=== PATIENT | male | born 1940 | race Hispanic/Latino ===

== ENCOUNTER 2017-05-05 05:45 | Day surgery (SDC) | payer OTHER ==
[2017-05-03 11:53] VITALS: BP 139/67
[2017-05-03 12:12] LABS: BASOPHILS % (AUTO) 1.4 % (0.0-5.0); EOSINOPHILS % (AUTO) 5.4 % (0.0-8.0); HEMATOCRIT 41.7 % (42-54); LYMPHOCYTES % (AUTO) 22.9 % (21.0-51.0); MEAN CORPUSCULAR HGB CONC 34.9 g/dL (32.0-36.0); MONOCYTES % (AUTO) 11.6 % (3.0-13.0); NEUTROPHILS % (AUTO) 58.7 % (40.0-77.0); NUCLEATED RED BLOOD CELLS 0.1 % (0.0-0.19); PLATELET COUNT (AUTO) 158 K/uL (130-400); RED BLOOD CELL COUNT(AUTO) 4.69 MIL/uL (4.50-6.20); RED CELL DISTRIBUTION WIDTH 13.5 % (11.0-15.5); WHITE BLOOD COUNT (AUTO) 5.9 K/uL (4.8-10.8)
[2017-05-03 12:18] LABS: CREATININE 1.1 mg/dL (0.5-1.5)
[2017-05-03 12:28] LABS: INR 1.02 (0.85-1.15); PROTHROMBIN TIME 10.7 SEC (9.6-11.6)
[2017-05-05] VITALS (11 sets, daily range): BP systolic 120–165; BP diastolic 64–80
[~2017-05-05] VITALS: Ht 167.6 cm; Wt 88.5 kg
[~2017-05-05 05:45] MED LIST: AMLO10TA2 PO; APIX5TAB PO; ASPI-1181 PO; HYDR25TA PO; METF500T6 PO; METO50TA18 PO; PANT40TA25 PO; PRAV40TA3 PO; TERA5CAP4 PO; VALS320T15 PO
[2017-05-05] MEDS ORDERED: SODIUM CHLORIDE 0.9% 1000ML 1,000 ML IV ONE (06:25)
[2017-05-05] MEDS ORDERED: HEPARIN SODIUM 1000UNIT/ML 10ML VIAL ONE (07:15)
[2017-05-05] MEDS ORDERED: LIDOCAINE HCL 2% 20ML ONE (07:15)
[2017-05-05] MEDS ORDERED: MEPERIDINE-PF 50 MG/ML SYG ONE (07:49)
[2017-05-05] MEDS ORDERED: MIDAZOLAM HCL 1 MG/ML 2ML VIAL ONE ×2 (07:49→07:50)
[2017-05-05] MEDS ORDERED: SODIUM CHLORIDE 0.9% 500ML 500 ML IV ONE (08:00)
[2017-05-05] MEDS ORDERED: DEXTROSE 50%-WATER 50 ML DISP.SYRIN IV PRN (09:45)
[2017-05-05] MEDS ORDERED: GLUCAGON 1MG KIT 1 MG ML IM PRN (09:45)
[2017-05-05] MEDS ORDERED: INSULIN HUMULIN R 100 UNIT/ML 3ML SQ SCH (11:30)
== END 2017-05-05 13:00 | disposition home or self-care (01) ==
LOC: DAH 05:45
PROVIDERS: ATTEND Internal Medicine Cardiovascular Disease
DX: I48.3 Typical atrial flutter (principal); I25.2 Old myocardial infarction; E78.5 Hyperlipidemia, unspecified; I48.91 Unspecified atrial fibrillation; I25.10 Atherosclerotic heart disease of native coronary artery without angina pectoris; I10 Essential (primary) hypertension; Z95.5 Presence of coronary angioplasty implant and graft; Z79.82 Long term (current) use of aspirin; Z79.01 Long term (current) use of anticoagulants
CPT/HCPCS: 36415; 80048; 82948 ×3; 85025; 85610; 85730; 93005; 93613; 93621; 93653; 99156; 99157; A4649; C1730; C1732; C1894 ×2; J1644; J1815; J2175; J2250; J3490; J7030; 99152; 99153

== ENCOUNTER → 2020-08-13 | Outpatient (CLI) | payer OTHER ==
[~2020-08-13] MED LIST changes: +AMLO-258 PO; -AMLO10TA2 PO; -ASPI-1181 PO; +ASPI-1443 PO; +METF-444 PO; -METF500T6 PO; -PANT40TA25 PO; +PANT40TA54 PO; -VALS320T15 PO; +VALS320T16 PO
== END | disposition home or self-care (01) ==
LOC: RAH 08:51
PROVIDERS: ATTEND Internal Medicine Cardiovascular Disease
DX: J90 Pleural effusion, not elsewhere classified (principal); R18.8 Other ascites; R16.1 Splenomegaly, not elsewhere classified
CPT/HCPCS: 76700

== ENCOUNTER → 2020-09-18 | Outpatient (CLI) | payer OTHER | END | disposition home or self-care (01) | LOC: SHCH 13:14 | PROVIDERS: ATTEND Internal Medicine Cardiovascular Disease | DX: I11.0 Hypertensive heart disease with heart failure (principal); I50.22 Chronic systolic (congestive) heart failure; I08.3 Combined rheumatic disorders of mitral, aortic and tricuspid valves; E78.5 Hyperlipidemia, unspecified; E11.9 Type 2 diabetes mellitus without complications | CPT/HCPCS: 93306; 93356 ==

== ENCOUNTER → 2020-10-30 | Outpatient (CLI) | payer OTHER | END | disposition home or self-care (01) | LOC: RAH 08:28 | PROVIDERS: ATTEND Internal Medicine Gastroenterology | DX: N28.1 Cyst of kidney, acquired (principal); K74.60 Unspecified cirrhosis of liver; J90 Pleural effusion, not elsewhere classified; Z90.49 Acquired absence of other specified parts of digestive tract | CPT/HCPCS: 76700; 93975 ==

== ENCOUNTER 2020-11-18 06:22 | Day surgery (SDC) | payer OTHER ==
[2020-11-18] VITALS (11 sets, daily range): BP systolic 101–130; BP diastolic 62–79
[~2020-11-18] VITALS: Ht 172.7 cm; Wt 74.4 kg
[~2020-11-18 06:22] MED LIST changes: +ACET-2743 PO; -ASPI-1443 PO; +CARV6.25 PO; +CYAN250T3 PO; +FURO40TA5 PO; +LEVO50CA4 PO; +LORA10TA7 PO; +MULT-1259 PO; +SACU1TAB PO; +SODIUM CHLORIDE 0.9% 1000ML 1,000 ML IV ONE
[2020-11-18] MEDS ORDERED: PROPOFOL 10 MG/ML 20ML VIAL IV ONE (07:44)
[2020-11-18] MEDS ORDERED: IPRATROPIUM/ALBUTEROL SULFATE 3 ML SOLUTION IH SCH (08:45)
[2020-11-18] MEDS ORDERED: IPRATROPIUM/ALBUTEROL SULFATE 3 ML SOLUTION IH ONE (08:45)
== END 2020-11-18 09:20 | disposition home or self-care (01) ==
LOC: ENDO 06:22 → DAH 06:22 → ENDO 09:20
PROVIDERS: ATTEND Internal Medicine Gastroenterology
DX: K74.60 Unspecified cirrhosis of liver (principal); R13.10 Dysphagia, unspecified; R12 Heartburn; K31.89 Other diseases of stomach and duodenum; I11.0 Hypertensive heart disease with heart failure; I50.20 Unspecified systolic (congestive) heart failure; E11.9 Type 2 diabetes mellitus without complications; I48.91 Unspecified atrial fibrillation; E78.5 Hyperlipidemia, unspecified; Z79.84 Long term (current) use of oral hypoglycemic drugs; Z79.01 Long term (current) use of anticoagulants; Z79.899 Other long term (current) drug therapy
CPT/HCPCS: 43239; 71045; 82948 ×2; 87635; 93005; 94640; A4215 ×2; A4221; A4222; A4223; A4606; A4620; A4657; A4663; C9803; J2704; J7030

== ENCOUNTER 2021-02-12 21:00 | Inpatient (IN) | payer OTHER ==
[~2021-02-12] VITALS: Ht 172.7 cm; Wt 65.9 kg
[~2021-02-12 21:00] MED LIST changes: -AMLO-258 PO; -HYDR25TA PO; -METO50TA18 PO; -PRAV40TA3 PO; -SODIUM CHLORIDE 0.9% 1000ML 1,000 ML IV ONE; -VALS320T16 PO
[2021-02-12 21:03] VITALS: BP 110/64
[2021-02-12 21:30] VITALS: BP 111/86
[2021-02-12 21:47] LABS: BASOPHILS % (AUTO) 0.2 % (0.0-5.0); EOSINOPHILS % (AUTO) 0.1 % (0.0-8.0); HEMATOCRIT 35.4 % (42-54); LYMPHOCYTES % (AUTO) 5.7 % (21.0-51.0); MEAN CORPUSCULAR HEMOGLOBIN 28.6 pg (27.0-33.0); MEAN CORPUSCULAR HGB CONC 33.9 g/dL (32.0-36.0); MEAN CORPUSCULAR VOLUME 84.5 fL (79-99); MONOCYTES % (AUTO) 5.8 % (3.0-13.0); NEUTROPHILS % (AUTO) 87.6 % (40.0-77.0); PLATELET COUNT (AUTO) 224 K/uL (130-400); RED BLOOD CELL COUNT(AUTO) 4.19 MIL/uL (4.50-6.20); RED CELL DISTRIBUTION WIDTH 16.8 % (11.0-15.5); WHITE BLOOD COUNT (AUTO) 10.5 K/uL (4.8-10.8)
[2021-02-12 22:03] LABS: CREATININE 1.2 mg/dL (0.5-1.5); POTASSIUM 3.3 mmol/L (3.5-5.1)
[2021-02-12 22:05] LABS: INR 1.23 (0.85-1.15); PROTHROMBIN TIME 13.2 SEC (9.6-11.6)
[2021-02-12 22:07] LABS: ALBUMIN 2.8 g/dL (3.5-5.0); B-TYPE NATRIURETIC PEPTIDE 1760 pg/mL (0-100); BILIRUBIN,TOTAL 0.6 mg/dL (0.2-1.0); TOTAL PROTEIN, SERUM 6.6 g/dL (6.0-8.3)
[2021-02-12 22:44] VITALS: BP 112/72
[2021-02-12] MEDS ORDERED: FUROSEMIDE 40MG VIAL IV ONE (23:00)
[2021-02-13] VITALS (11 sets, daily range): BP systolic 93–125; BP diastolic 53–81
[2021-02-13] MEDS ORDERED: CEFTRIAXONE 1G VIAL IV SCH
[2021-02-13] MEDS ORDERED: LACTULOSE 20 GM/30 ML UDCUP PO PRN
[2021-02-13] MEDS ORDERED: KCL 20 MEQ ERTAB PO PRN
[2021-02-13] MEDS ORDERED: LIDOCAINE HCL-MPF 1% 2ML VIAL IV PRN
[2021-02-13] MEDS ORDERED: POTASSIUM CHLORIDE 10% ELIXIR 20 MEQ/15 ML UDCUP PO PRN
[2021-02-13] MEDS ORDERED: ACETAMINOPHEN 325 MG TAB PO PRN
[2021-02-13] MEDS ORDERED: POTASSIUM CHLORIDE 10MEQ/100ML 100 ML IV PRN
[2021-02-13] MEDS ORDERED: HYDRALAZINE 20MG/ML VIAL IV PRN
[2021-02-13] MEDS ORDERED: ONDANSETRON 4MG INJ IV PRN
[2021-02-13] MEDS ORDERED: APIX5TAB PO (02:45)
[2021-02-13] MEDS ORDERED: SPIR25TA6 PO (02:45)
[2021-02-13] MEDS ORDERED: TERA5CAP4 PO (02:45)
[2021-02-13] MEDS ORDERED: MONT10TA32 PO (02:45)
[2021-02-13] MEDS ORDERED: METF-444 PO (02:45)
[2021-02-13] MEDS ORDERED: FURO40TA5 PO (02:45)
[2021-02-13] MEDS ORDERED: LEVO50CA4 PO (02:45)
[2021-02-13] MEDS ORDERED: DAPA5TAB PO (02:45)
[2021-02-13] MEDS ORDERED: PANT40TA54 PO (02:45)
[2021-02-13] MEDS: LEVOTHYROXINE 50 MCG TABLET PO SCH (06:30)
[2021-02-13 06:41] LABS: BASOPHILS % (AUTO) 0.2 % (0.0-5.0); HEMATOCRIT 34.7 % (42-54); MEAN CORPUSCULAR HEMOGLOBIN 27.7 pg (27.0-33.0); MEAN CORPUSCULAR HGB CONC 33.1 g/dL (32.0-36.0); MEAN CORPUSCULAR VOLUME 83.6 fL (79-99); MONOCYTES % (AUTO) 6.1 % (3.0-13.0); NEUTROPHILS % (AUTO) 85.1 % (40.0-77.0); PLATELET COUNT (AUTO) 210 K/uL (130-400); RED BLOOD CELL COUNT(AUTO) 4.15 MIL/uL (4.50-6.20); WHITE BLOOD COUNT (AUTO) 10.3 K/uL (4.8-10.8)
[2021-02-13 07:06] LABS: CREATININE 1.1 mg/dL (0.5-1.5); MAGNESIUM 0.9 mg/dL (1.80-2.40); PHOSPHORUS 3.6 mg/dL (2.5-4.9); POTASSIUM 3.6 mmol/L (3.5-5.1); THYROID STIMULATING HORMONE 5.2 uIU/mL (0.36-3.74)
[2021-02-13] MEDS: INSULIN HUMULIN R 100 UNIT/ML 3ML SQ SCH ×4 (07:30→21:00)
[2021-02-13] MEDS ORDERED: MAGNESIUM 2GM PREMIX 50ML 50 ML IV ONE (07:56)
[2021-02-13] MEDS: FUROSEMIDE 40MG VIAL IVP SCH ×2 (08:39→21:21)
[2021-02-13] MEDS: FAMOTIDINE 20MG VIAL IV SCH ×2 (08:39→21:21)
[2021-02-13] MEDS: CARVEDILOL 6.25 MG TABLET PO SCH ×2 (08:45→21:00)
[2021-02-13 16:13] LABS: APPEARANCE BODY FLUID TURBID (CLEAR); BODY FLUID WBC 84 /cu. mm.; COLOR,BODY FLUID XANTHOCHROMIC (LT YELLOW); SPECIMENTYPE,BODY FLUID ASCITES; TOTAL VOLUME,BODY FLUID 9300 mL
[2021-02-13 16:14] LABS: BODY FLUID RBC 9850 /cu. mm.
[2021-02-13 16:22] LABS: BF EOSINOPHIL 1 %; BF LYMPHOCYTE 37 %; BF MESOTHELIAL 41 %
[2021-02-14] MEDS: CEFTRIAXONE 1G VIAL IV SCH ×2 (01:22→23:10)
[2021-02-14 01:27] VITALS: BP 111/79
[2021-02-14 02:16] VITALS: BP 118/74
[2021-02-14] MEDS: LEVOTHYROXINE 50 MCG TABLET PO SCH (05:55)
[2021-02-14] MEDS: INSULIN HUMULIN R 100 UNIT/ML 3ML SQ SCH ×4 (05:56→21:00)
[2021-02-14 07:19] LABS: HEMATOCRIT 36.7 % (42-54); MEAN CORPUSCULAR HEMOGLOBIN 27.4 pg (27.0-33.0); MEAN CORPUSCULAR HGB CONC 32.2 g/dL (32.0-36.0); MEAN CORPUSCULAR VOLUME 85.2 fL (79-99); RED BLOOD CELL COUNT(AUTO) 4.31 MIL/uL (4.50-6.20); RED CELL DISTRIBUTION WIDTH 17.1 % (11.0-15.5); WHITE BLOOD COUNT (AUTO) 10.8 K/uL (4.8-10.8)
[2021-02-14 07:40] LABS: ALBUMIN 2.7 g/dL (3.5-5.0); BILIRUBIN,TOTAL 0.6 mg/dL (0.2-1.0); CREATININE 1.1 mg/dL (0.5-1.5); POTASSIUM 3.2 mmol/L (3.5-5.1); TOTAL PROTEIN, SERUM 5.7 g/dL (6.0-8.3)
[2021-02-14 08:00] VITALS: BP 123/68
[2021-02-14] MEDS: PANTOPRAZOLE 40 MG TAB DR PO SCH (08:27)
[2021-02-14] MEDS: SPIRONOLACTONE 25 MG TAB PO SCH (08:28)
[2021-02-14] MEDS: APIXABAN 5 MG TABLET PO SCH ×2 (08:28→21:35)
[2021-02-14] MEDS: CARVEDILOL 6.25 MG TABLET PO SCH (08:30)
[2021-02-14] MEDS: FUROSEMIDE 40 MG TABLET PO SCH ×2 (08:36→21:35)
[2021-02-14] MEDS: FAMOTIDINE 20MG VIAL IV SCH ×2 (08:36→21:35)
[2021-02-14] MEDS: METFORMIN HCL 500 MG TABLET PO SCH ×3 (08:36→21:35)
[2021-02-14] MEDS: LORATADINE 10 MG TABLET PO SCH (08:36)
[2021-02-14] MEDS: ACETAMINOPHEN 500 MG TABLET PO SCH (08:37)
[2021-02-14] MEDS: SACUBITRIL/VALSARTAN 1 EACH TABLET PO SCH ×2 (08:38→21:35)
[2021-02-14] MEDS: MONTELUKAST SODIUM 10 MG TAB PO SCH (08:38)
[2021-02-14] MEDS ORDERED: NON-FORMULARY MEDICATION 1 EACH (Levothyroxine Sodium (Levothyroxine) 50 MCG) PO SCH (09:00)
[2021-02-14 11:46] VITALS: BP 93/62
[2021-02-14] MEDS ORDERED: POTASSIUM CHLORIDE 20MEQ/100ML 100 ML IV PRN (12:00)
[2021-02-14] MEDS ORDERED: LIDOCAINE HCL-MPF 1% 2ML VIAL IV PRN (12:00)
[2021-02-14] MEDS ORDERED: MAGNESIUM 2GM PREMIX 50ML 50 ML IV PRN (12:00)
[2021-02-14] MEDS ORDERED: FUROSEMIDE 20MG VIAL IV ONE (13:00)
[2021-02-14] MEDS: KCL 20 MEQ ERTAB PO PRN ×2 (13:17→20:14)
[2021-02-14 16:00] VITALS: BP 94/56
[2021-02-14 19:10] VITALS: BP 96/57
[2021-02-14] MEDS: TERAZOSIN 5MG CAP PO SCH (21:35)
[2021-02-15] VITALS (7 sets, daily range): BP systolic 90–96; BP diastolic 52–59
[2021-02-15] MEDS: INSULIN HUMULIN R 100 UNIT/ML 3ML SQ SCH ×4 (05:36→21:00)
[2021-02-15] MEDS: LEVOTHYROXINE 50 MCG TABLET PO SCH (06:03)
[2021-02-15 06:24] LABS: HEMATOCRIT 35.8 % (42-54); MEAN CORPUSCULAR HEMOGLOBIN 27.7 pg (27.0-33.0); MEAN CORPUSCULAR HGB CONC 33.2 g/dL (32.0-36.0); MEAN CORPUSCULAR VOLUME 83.3 fL (79-99); RED BLOOD CELL COUNT(AUTO) 4.3 MIL/uL (4.50-6.20); RED CELL DISTRIBUTION WIDTH 16.9 % (11.0-15.5); WHITE BLOOD COUNT (AUTO) 7.9 K/uL (4.8-10.8)
[2021-02-15 06:41] LABS: CREATININE 0.9 mg/dL (0.5-1.5); MAGNESIUM 1.5 mg/dL (1.80-2.40); POTASSIUM 3.2 mmol/L (3.5-5.1)
[2021-02-15] MEDS: MAGNESIUM 2GM PREMIX 50ML 50 ML IV SCH (06:47)
[2021-02-15] MEDS: KCL 20 MEQ ERTAB PO PRN (06:47)
[2021-02-15] MEDS: Dapagliflozin Propanediol (Farxiga) 5 MG) PO SCH (09:00)
[2021-02-15] MEDS: FUROSEMIDE 40 MG TABLET PO SCH ×2 (09:08→16:37)
[2021-02-15] MEDS: SPIRONOLACTONE 25 MG TAB PO SCH (09:08)
[2021-02-15] MEDS: APIXABAN 5 MG TABLET PO SCH ×2 (09:08→19:35)
[2021-02-15] MEDS: ACETAMINOPHEN 500 MG TABLET PO SCH (09:09)
[2021-02-15] MEDS: LORATADINE 10 MG TABLET PO SCH (09:09)
[2021-02-15] MEDS: MONTELUKAST SODIUM 10 MG TAB PO SCH (09:09)
[2021-02-15] MEDS: MULTIVITAMIN TABLET PO SCH (09:09)
[2021-02-15] MEDS: PANTOPRAZOLE 40 MG TAB DR PO SCH (09:11)
[2021-02-15] MEDS: POTASSIUM CHLORIDE 10% ELIXIR 20 MEQ/15 ML UDCUP PO PRN ×2 (09:14→11:56)
[2021-02-15] MEDS: CYANOCOBALAMIN (VITAMIN B-12) 100 MCG TABLET PO SCH (09:15)
[2021-02-15] MEDS: SACUBITRIL/VALSARTAN 1 EACH TABLET PO SCH ×2 (09:20→19:34)
[2021-02-15] MEDS: METFORMIN HCL 500 MG TABLET PO SCH ×2 (09:20→19:34)
[2021-02-15] MEDS: FAMOTIDINE 20MG VIAL IV SCH ×2 (09:20→19:35)
[2021-02-15] MEDS ORDERED: FUROSEMIDE 40 MG TABLET PO SCH (12:00)
[2021-02-15] MEDS: CARVEDILOL 6.25 MG TABLET PO SCH (16:38)
[2021-02-15] MEDS: TERAZOSIN 5MG CAP PO SCH (19:34)
[2021-02-16] MEDS: CEFTRIAXONE 1G VIAL IV SCH (00:51)
[2021-02-16 04:11] VITALS: BP 111/72
[2021-02-16 05:09] LABS: HEMATOCRIT 38.7 % (42-54); MEAN CORPUSCULAR HEMOGLOBIN 27.6 pg (27.0-33.0); MEAN CORPUSCULAR HGB CONC 32.3 g/dL (32.0-36.0); MEAN CORPUSCULAR VOLUME 85.4 fL (79-99); RED BLOOD CELL COUNT(AUTO) 4.53 MIL/uL (4.50-6.20); RED CELL DISTRIBUTION WIDTH 17.3 % (11.0-15.5); WHITE BLOOD COUNT (AUTO) 8.9 K/uL (4.8-10.8)
[2021-02-16 05:28] LABS: CREATININE 0.9 mg/dL (0.5-1.5); MAGNESIUM 1.6 mg/dL (1.80-2.40); PHOSPHORUS 2.6 mg/dL (2.5-4.9); POTASSIUM 3.9 mmol/L (3.5-5.1)
[2021-02-16] MEDS: INSULIN HUMULIN R 100 UNIT/ML 3ML SQ SCH ×4 (05:29→21:00)
[2021-02-16] MEDS: MAGNESIUM 2GM PREMIX 50ML 50 ML IV SCH (05:34)
[2021-02-16] MEDS: LEVOTHYROXINE 50 MCG TABLET PO SCH (05:34)
[2021-02-16 07:30] VITALS: BP 96/61
[2021-02-16] MEDS: FAMOTIDINE 20MG VIAL IV SCH ×2 (08:37→21:12)
[2021-02-16] MEDS: SACUBITRIL/VALSARTAN 1 EACH TABLET PO SCH ×2 (08:38→21:12)
[2021-02-16] MEDS: PANTOPRAZOLE 40 MG TAB DR PO SCH (08:38)
[2021-02-16] MEDS: LORATADINE 10 MG TABLET PO SCH (08:39)
[2021-02-16] MEDS: FUROSEMIDE 80 MG TABLET PO SCH (08:39)
[2021-02-16] MEDS: SPIRONOLACTONE 25 MG TAB PO SCH (08:39)
[2021-02-16] MEDS: METFORMIN HCL 500 MG TABLET PO SCH ×2 (08:39→21:12)
[2021-02-16] MEDS: CYANOCOBALAMIN (VITAMIN B-12) 100 MCG TABLET PO SCH (08:39)
[2021-02-16] MEDS: MONTELUKAST SODIUM 10 MG TAB PO SCH (08:39)
[2021-02-16] MEDS: MULTIVITAMIN TABLET PO SCH (08:40)
[2021-02-16] MEDS: APIXABAN 5 MG TABLET PO SCH ×2 (08:40→21:13)
[2021-02-16] MEDS: ACETAMINOPHEN 500 MG TABLET PO SCH (08:41)
[2021-02-16] MEDS: CARVEDILOL 6.25 MG TABLET PO SCH ×2 (09:00→10:24)
[2021-02-16] MEDS: Dapagliflozin Propanediol (Farxiga) 5 MG) PO SCH (09:00)
[2021-02-16 11:00] VITALS: BP 89/61
[2021-02-16 16:00] VITALS: BP 107/64
[2021-02-16] MEDS: FUROSEMIDE 40 MG TABLET PO SCH (16:51)
[2021-02-16 20:14] VITALS: BP 111/64
[2021-02-16] MEDS: TERAZOSIN 5MG CAP PO SCH (21:13)
[2021-02-16] MEDS: BALSAM PERU/CASTOR OIL 60 GM TUBE TP SCH (21:15)
[2021-02-16 23:50] VITALS: BP 99/62
[2021-02-17] MEDS: CEFTRIAXONE 1G VIAL IV SCH ×2 (01:34→23:50)
[2021-02-17 04:08] VITALS: BP 100/61
[2021-02-17] MEDS: INSULIN HUMULIN R 100 UNIT/ML 3ML SQ SCH ×4 (06:26→19:50)
[2021-02-17] MEDS: LEVOTHYROXINE 50 MCG TABLET PO SCH (06:27)
[2021-02-17 07:43] VITALS: BP 101/60
[2021-02-17] MEDS: Dapagliflozin Propanediol (Farxiga) 5 MG) PO SCH (09:00)
[2021-02-17] MEDS: METFORMIN HCL 500 MG TABLET PO SCH (09:13)
[2021-02-17] MEDS: CARVEDILOL 6.25 MG TABLET PO SCH (09:14)
[2021-02-17] MEDS: SPIRONOLACTONE 25 MG TAB PO SCH ×2 (09:15→20:02)
[2021-02-17] MEDS: SACUBITRIL/VALSARTAN 1 EACH TABLET PO SCH ×2 (09:15→20:02)
[2021-02-17] MEDS: PANTOPRAZOLE 40 MG TAB DR PO SCH (09:15)
[2021-02-17] MEDS: CYANOCOBALAMIN (VITAMIN B-12) 100 MCG TABLET PO SCH (09:15)
[2021-02-17] MEDS: MULTIVITAMIN TABLET PO SCH (09:15)
[2021-02-17] MEDS: MONTELUKAST SODIUM 10 MG TAB PO SCH (09:15)
[2021-02-17] MEDS: ACETAMINOPHEN 500 MG TABLET PO SCH (09:16)
[2021-02-17] MEDS: LORATADINE 10 MG TABLET PO SCH (09:17)
[2021-02-17] MEDS: FAMOTIDINE 20MG VIAL IV SCH (09:17)
[2021-02-17] MEDS: FUROSEMIDE 80 MG TABLET PO SCH (09:17)
[2021-02-17] MEDS: APIXABAN 5 MG TABLET PO SCH (09:20)
[2021-02-17] MEDS: BALSAM PERU/CASTOR OIL 60 GM TUBE TP SCH ×3 (09:26→20:11)
[2021-02-17 12:09] VITALS: BP 76/46
[2021-02-17 15:52] VITALS: BP 100/61
[2021-02-17] MEDS ORDERED: MIDODRINE HCL 5 MG TABLET PO SCH ×2 (16:00→16:30)
[2021-02-17] MEDS: FUROSEMIDE 40 MG TABLET PO SCH (18:26)
[2021-02-17 20:00] VITALS: BP 96/64
[2021-02-18] VITALS: BP 96/56
[2021-02-18 04:00] VITALS: BP 94/55
[2021-02-18 05:12] LABS: MEAN CORPUSCULAR HEMOGLOBIN 27.8 pg (27.0-33.0); MEAN CORPUSCULAR HGB CONC 32.9 g/dL (32.0-36.0); MEAN CORPUSCULAR VOLUME 84.4 fL (79-99); RED BLOOD CELL COUNT(AUTO) 4.5 MIL/uL (4.50-6.20); RED CELL DISTRIBUTION WIDTH 17.1 % (11.0-15.5)
[2021-02-18 05:35] LABS: CREATININE 1.2 mg/dL (0.5-1.5); POTASSIUM 3.6 mmol/L (3.5-5.1)
[2021-02-18] MEDS: LEVOTHYROXINE 50 MCG TABLET PO SCH (05:45)
[2021-02-18] MEDS: INSULIN HUMULIN R 100 UNIT/ML 3ML SQ SCH ×3 (05:48→16:30)
[2021-02-18 08:00] VITALS: BP 97/62
[2021-02-18] MEDS: Dapagliflozin Propanediol (Farxiga) 5 MG) PO SCH (09:00)
[2021-02-18] MEDS ORDERED: ASPIRIN 81MG CHEW TAB PO SCH (09:00)
[2021-02-18] MEDS: ACETAMINOPHEN 500 MG TABLET PO SCH (09:10)
[2021-02-18] MEDS: MONTELUKAST SODIUM 10 MG TAB PO SCH (09:10)
[2021-02-18] MEDS: PANTOPRAZOLE 40 MG TAB DR PO SCH (09:10)
[2021-02-18] MEDS: MULTIVITAMIN TABLET PO SCH (09:10)
[2021-02-18] MEDS: FUROSEMIDE 80 MG TABLET PO SCH (09:10)
[2021-02-18] MEDS: CARVEDILOL 6.25 MG TABLET PO SCH (09:10)
[2021-02-18] MEDS: SACUBITRIL/VALSARTAN 1 EACH TABLET PO SCH (09:10)
[2021-02-18] MEDS: SPIRONOLACTONE 25 MG TAB PO SCH (09:11)
[2021-02-18] MEDS: LORATADINE 10 MG TABLET PO SCH (09:11)
[2021-02-18] MEDS: CYANOCOBALAMIN (VITAMIN B-12) 100 MCG TABLET PO SCH (09:13)
[2021-02-18] MEDS: BALSAM PERU/CASTOR OIL 60 GM TUBE TP SCH ×2 (09:14→18:29)
[2021-02-18 10:13] LABS: APPEARANCE,URINE Clear (CLEAR); BILIRUBIN,URINE Negative (NEGATIVE); COLOR,URINE Yellow (YELLOW); GLUCOSE, URINE (UA) Negative (NEGATIVE); KETONES,URINE Negative (NEGATIVE); LEUKOCYTE ESTERASE ,URINE Trace (NEGATIVE); NITRATE,URINE Negative (NEGATIVE); OCCULT BLOOD,URINE Negative (NEGATIVE); PROTEIN,URINE Negative (NEGATIVE); UROBILINOGEN,URINE 0.2 mg/dL (0.2-1.0)
[2021-02-18 10:16] LABS: BACTERIA,URINE Rare /HPF (None Seen); RBC,URINE 0-1 /HPF (0-1); WBC,URINE 0-1 /HPF (0-1)
[2021-02-18 10:17] LABS: SQUAMOUS EPITHELIAL CELL,UR Rare /HPF (0-2)
[2021-02-18 12:00] VITALS: BP 89/44
[2021-02-18 16:00] VITALS: BP 82/46
== END 2021-02-18 20:02 | disposition hospice, home (50) | DRG 441 ==
LOC: EDH 21:00 → OBSVTOIN 23:49 → EDHIP 23:49 → 3AH 02-14 02:02 → 3CH 02-17 06:21
PROVIDERS: ADMIT Internal Medicine Critical Care Medicine; ATTEND Internal Medicine Critical Care Medicine
PROC: 0W9G3ZZ Drainage of Peritoneal Cavity, Percutaneous Approach (ICD-10-PCS; principal; 2021-02-13)
DX: K76.1 Chronic passive congestion of liver (principal); I50.23 Acute on chronic systolic (congestive) heart failure; R18.8 Other ascites; R64 Cachexia; J98.11 Atelectasis; K76.6 Portal hypertension; E03.9 Hypothyroidism, unspecified; E11.9 Type 2 diabetes mellitus without complications; J44.9 Chronic obstructive pulmonary disease, unspecified; Z68.21 Body mass index [BMI] 21.0-21.9, adult; Z79.01 Long term (current) use of anticoagulants; Z79.899 Other long term (current) drug therapy; Z95.810 Presence of automatic (implantable) cardiac defibrillator; Z88.8 Allergy status to other drugs, medicaments and biological substances
CPT/HCPCS: 36415; 49083; 71045; 80048; 80053; 81001; 82140; 82948; 83735; 83880; 84100; 84132; 84439; 84443; 84484; 85025; 85027; 85610; 87071; 87205; 89051; 93005; 93306; 93356; 93970; 94760; 97039; C1729; G0378; J0696; J1940; J3475; J3490